=== PATIENT | female | born 2005 | race Two or more races ===

== ENCOUNTER 2024-02-13 18:29 | Emergency (ER) | payer OTHER, SELFPAY ==
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
[2024-02-13 19:06] VITALS: BP 118/65; PULSE 86; RESP 14; TEMP 36.9; O2SAT 100
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
--- NOTE | 2024-02-13 22:06 | PC.NURSE ---
pt states she feels better and is ready to leave
[2024-02-13 22:38] VITALS: BP 127/81; PULSE 88; RESP 18; O2SAT 98
== END 2024-02-13 22:39 | disposition home or self-care (01) ==
PROVIDERS: Emergency Provider Physician Assistant
DX: S16.1XXA Strain of muscle, fascia and tendon at neck level, initial encounter (principal); K50.90 Crohn's disease, unspecified, without complications; V43.02XA Car driver injured in collision with other type car in nontraffic accident, initial encounter
CPT/HCPCS: 70450; 72125; 73030; 99284